=== PATIENT | female | born 1970 | race American Indian/Alaskan Native ===

== ENCOUNTER 2020-05-06 18:11 | Emergency (ER) | payer OTHER ==
[2020-05-06] MEDS ORDERED: Sodium Chloride 0.9% 1,000 ML IV ONE (19:20)
[2020-05-06 19:47] VITALS: BP 141/62; PULSE 65
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
[2020-05-06] MEDS ORDERED: methylPREDNISolone Sodium Succinate 125 MG/2 ML SDV IVPUSH ONE (20:11)
[2020-05-06] MEDS ORDERED: Ketorolac 30 MG/ML SDV IVPUSH ONE (20:11)
[2020-05-06 20:18] LABS: ANION GAP 11.1 mEq/L (7-13); CHLORIDE,CL 107 mmol/L (98-107); SODIUM,NA 141 mmol/L (136-145)
--- NOTE | 2020-05-06 21:20 | CT ---
PROCEDURE INFORMATION: Exam: CT Head Without Contrast Exam date and time: 05/06/2020 8:28 PM Age: 49 years old Clinical indication: Pain; Headache; Additional info: Headaches (positive for covid) TECHNIQUE: Imaging protocol: Computed tomography of the head without contrast. Radiation optimization: All CT scans at this facility use at least one of these dose optimization techniques: automated exposure control; mA and/or kV adjustment per patient size (includes targeted exams where dose is matched to clinical indication); or iterative reconstruction. COMPARISON: No relevant prior studies available. FINDINGS: Brain: Normal. No hemorrhage. Unremarkable white matter. No mass effect. Ventricles: Normal. No ventriculomegaly. Bones/joints: Unremarkable. No acute fracture. Sinuses: Visualized sinuses are unremarkable. No fluid levels. Mastoid air cells: Visualized mastoid air cells are well aerated. Soft tissues: Unremarkable. IMPRESSION: No acute intracranial abnormality.
== END 2020-05-06 21:45 | disposition home or self-care (01) ==
LOC: DL.ED 18:11
DX: U07.1 COVID-19 (principal); I10 Essential (primary) hypertension; F17.210 Nicotine dependence, cigarettes, uncomplicated; Z79.899 Other long term (current) drug therapy; Z91.041 Radiographic dye allergy status
CPT/HCPCS: 36415; 70450; 80053; 81001; 83605; 85025; 86788; 87040; 87086; 87088; 87186; 87635; 96361; 96374; 99284; J2930; J7030; 99283; U0002

== ENCOUNTER 2021-01-28 17:33 | Emergency (ER) | payer OTHER ==
[2021-01-28 17:48] VITALS: BP 146/81; PULSE 70
[2021-01-28] MEDS ORDERED: Bacitracin Oint 1 GM U/D Packet TOP ONE (17:49)
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
[2021-01-28 18:22] LABS: ANION GAP 11.9 mEq/L (7-13); CHLORIDE,CL 104 mmol/L (98-107); SODIUM,NA 140 mmol/L (136-145)
== END 2021-01-28 19:49 | disposition home or self-care (01) ==
LOC: DL.ED 17:33
DX: L02.413 Cutaneous abscess of right upper limb (principal); I10 Essential (primary) hypertension; Z72.0 Tobacco use; Z91.041 Radiographic dye allergy status; Z79.899 Other long term (current) drug therapy
CPT/HCPCS: 36415; 80053; 83605; 85025; 87040; 96365; 96366; 99283; J3370; J7050

== ENCOUNTER 2021-07-11 23:08 | Emergency (ER) | payer OTHER ==
[2021-07-11] MEDS ORDERED: Ondansetron 4 MG Tab.DIS PO ONE (23:09)
[2021-07-11] MEDS ORDERED: Metoclopramide 10 MG/2 ML SDV IVPUSH ONE (23:43)
[2021-07-11] MEDS ORDERED: Sodium Chloride 0.9% 1,000 ML IV ONE (23:43)
[2021-07-11] MEDS ORDERED: Famotidine 20 MG/2 ML SDV IVPUSH ONE (23:55)
[2021-07-11 23:58] VITALS: PULSE 61
[2021-07-12 00:18] LABS: ANION GAP 14.9 mEq/L (7-13); CHLORIDE,CL 103 mmol/L (98-107); SODIUM,NA 140 mmol/L (136-145)
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
[2021-07-12] MEDS ORDERED: cefTRIAXone 1 GM in Sodium Chloride 0.9% 50 ML IV ONE (00:47)
[2021-07-12] MEDS ORDERED: Ondansetron 4 MG Tab.DIS ONE (01:13)
--- NOTE | 2021-07-12 02:24 | CR ---
PROCEDURE INFORMATION: Exam: XR Abdomen Exam date and time: 07/12/2021 12:38 AM Age: 50 years old Clinical indication: Other: Making sure no air fluid levels/obstruction; Additional info: Vomiting TECHNIQUE: Imaging protocol: XR of the abdomen. Views: Frontal supine view of the abdomen. 1 View. COMPARISON: No relevant prior studies available. FINDINGS: Gastrointestinal tract: Normal. No bowel dilation. Bones/joints: Unremarkable. IMPRESSION: No acute findings.
== END 2021-07-12 01:22 | disposition home or self-care (01) ==
LOC: DL.ED 23:08
DX: N30.00 Acute cystitis without hematuria (principal); K52.9 Noninfective gastroenteritis and colitis, unspecified; I10 Essential (primary) hypertension; E03.9 Hypothyroidism, unspecified; Z72.0 Tobacco use; Z91.041 Radiographic dye allergy status; Z79.899 Other long term (current) drug therapy
CPT/HCPCS: 36415; 74018; 80053; 81001; 82150; 83690; 85025; 87040; 87086; 87088; 87186; 96365; 96375; 99284; A9270; J0696; J2765; J3490; J7030